=== PATIENT | female | born 1965 | race Two or more races ===

== ENCOUNTER 2021-06-14 23:11 | Emergency (ER) | payer OTHER ==
[~2021-06-14] VITALS: Ht 170.2 cm; Wt 108.9 kg
== END 2021-06-14 23:27 ==
LOC: ER 23:11 → EDBD 23:11 → ER 23:27
DX: I46.9 Cardiac arrest, cause unspecified (principal); I10 Essential (primary) hypertension
CPT/HCPCS: 92950